=== PATIENT | female | born 1965 | race Caucasian/White ===

== ENCOUNTER → 2017-01-15 15:55 | Emergency (ER) | payer SELFPAY ==
--- NOTE | 2017-01-15 17:35 | RAD ---
HISTORY: Right knee injury with pain COMPARISONS: None VIEWS: 4, Frontal, lateral, axial, and oblique views of the right knee FINDINGS: BONE DENSITY: Normal. BONES: There is no displaced fracture. JOINTS: There is no arthropathy. There is no suprapatellar joint effusion or lipohemarthrosis. ALIGNMENT: There is no dislocation. SOFT TISSUES: Unremarkable. OTHER FINDINGS: None. IMPRESSION: NO ACUTE OSSEOUS INJURY. IF SYMPTOMS PERSIST, RECOMMEND REPEAT IMAGING.
[2017-01-15 18:29] VITALS: BP 118/80
--- NOTE | 2017-02-08 08:34 | ED ---
Lower Extremity - HPI Summary HPI Summary: Pt here w/ Rt knee pain. States she tripped at work carrying a box of frozen cookies and landed on her knees - now has pain in Rt knee. Back of Rt knee hurt after she sits for a period of time and then goes to stand. She is able to ambulate and bear weight however reports she gets a shooting pain in the lateral aspect of her Rt lower leg if she moves "just right". Has tried a few pain relievers of which she does not recall the name w/ some relief. Denies numbness, tingling, weakness. Denies head injury, LOC or neuro deficits during or after fall. No other injuries she cares to address from fall. Concerned and just wanted to get checked out here today. - History of Current Complaint Chief Complaint: EDExtremityLower Stated Complaint: FALL/RT KNEE INJURY Time Seen by Provider: 01/15/17 16:37 Hx Obtained From: Patient Pain Intensity: 3 - Allergies/Home Medications Allergies/Adverse Reactions: Allergies Allergy/AdvReac Type Severity Reaction Status Date / Time No Known Allergies Allergy Verified 03/16/15 17:47 PMH/Surg Hx/FS Hx/Imm Hx Previously Healthy: Yes Endocrine/Hematology History: Denies: Hx Anticoagulant Therapy, Hx Blood Disorders Infectious Disease History: No Infectious Disease History: Denies: Traveled Outside the [place] in Last 30 Days - Social History Occupation: Employed Full-time Alcohol Use: Rare Hx Substance Use: No Substance Use Type: Reports: None Hx Tobacco Use: Yes Smoking Status (MU): Heavy Every Day Tobacco Smoker Review of Systems Constitutional: Negative Positive: no symptoms reported Musculoskeletal: Other - see HPI Positive: Bruising - knees Neurological: Negative Psychological: Normal All Other Systems Reviewed And Are Negative: Yes Physical Exam Triage Information Reviewed: Yes Vital Signs On Initial Exam: Initial Vitals Temp Pulse Resp BP Pulse Ox 97.6 F 81 18 146/80 99 01/15/17 16:00 01/15/17 16:00 01/15/17 16:00 01/15/17 16:00 01/15/17 16:00 Vital Signs Reviewed: Yes Appearance: Positive: Well-Appearing, No Pain Distress, Well-Nourished Skin: Positive: Warm, Dry - ecchymosis over B/L knees - no ervin deformity Head/Face: Positive: Normal Head/Face Inspection Respiratory/Lung Sounds: Positive: Breath Sounds Present Cardiovascular: Positive: Normal, Pulses are Symmetrical in both Upper and Lower Extremities Musculoskeletal: Positive: Strength/ROM Intact, Other - no popliteal edema, neg jaya's, neg ant/post drawer tests, neg verus/valgus stress tests, neg Meri Neurological: Positive: Normal, Sensory/Motor Intact, Alert, Oriented to Person Place, Time Psychiatric: Positive: Normal Diagnostics - Vital Signs Vital Signs Temp Pulse Resp BP Pulse Ox 01/15/17 18:28 97.8 F 69 16 118/80 01/15/17 16:00 97.6 F 81 18 146/80 99 - Laboratory Lab Statement: Any lab studies that have been ordered have been reviewed, and results considered in the medical decision making process. Lower Extremity Course/Dx - Diagnoses Provider Diagnoses: Right knee sprain Discharge - Discharge Plan Condition: Stable Disposition: HOME Prescriptions: Cyclobenzaprine TAB* [Flexeril 10 MG TAB*] 10 mg PO BEDTIME PRN #5 tab PRN Reason: Pain Patient Education Materials: Knee Sprain (ED) Referrals: Zohaib Martin MD [Primary Care Provider] - Additional Instructions: Rest, ice, elevate You may wear an JAH wrap or OTC neoprene knee brace if this provides comfort and support. Continue alternating ibuprofen with acetaminophen as needed for pain You may take flexeril, a muscle relaxer, before to help you sleep. This may cause drowsiness - do not operate machinery while taking. Follow-up with PCP if pain continues after 1-2 weeks
== END | disposition home or self-care (01) ==
LOC: ED 15:55
DX: S83.91XA Sprain of unspecified site of right knee, initial encounter (principal); M25.561 Pain in right knee; W22.8XXA Striking against or struck by other objects, initial encounter; Y93.9 Activity, unspecified; Y92.9 Unspecified place or not applicable; Y99.9 Unspecified external cause status
CPT/HCPCS: 99282

== ENCOUNTER → 2018-03-17 13:10 | Emergency (ER) | payer BC ==
[~2018-03-17 13:10] MED LIST: Sucralfate TAB* 1 GM PO ONE
--- NOTE | 2018-03-17 15:42 | ED ---
Abdominal Pain/Female - HPI Summary HPI Summary: This is scribe Romaine Gibson documenting for attending Dr. Nolan Huerta MD. This patient is a 53 year old F presenting to [facility] with a chief complaint of intermittent sharp upper abd pain radiating to her chest, shoulders, and upper back since 3 days ago. This pain has been going on for 3 weeks but is at its worst these last 3 days. The patient rates the pain 5/10 in severity. Symptoms aggravated by going to work, which she thinks is stress related. Patient reports that her chest fills with gas during these episodes. PMHX GERD. SHX tobacco use. FHX Gall bladder problems, cardiac problems. RX Prilosec. I, Dr. Huerta, personally performed the services described in this documentation as scribed in my presence and it is both accurate and complete. - History of Current Complaint Chief Complaint: EDAbdPain Stated Complaint: ABD PAIN, VOMITING Time Seen by Provider: 03/17/18 15:30 Hx Obtained From: Patient Onset/Duration: Gradual Onset, Lasting Weeks - 3, Still Present Timing: Intermittent Episode Lasting - a few minutes to several hours Severity Initially: Moderate Severity Currently: Moderate Pain Intensity: 5 Pain Scale Used: 0-10 Numeric Location: Epigastric Radiates: Yes Radiates to: Back, Chest Character: Sharp Aggravating Factor(s): Other: - stress Associated Signs and Symptoms: Positive: Chest Pain, Back Pain Allergies/Adverse Reactions: Allergies Allergy/AdvReac Type Severity Reaction Status Date / Time Penicillins Allergy Hives Verified 03/17/18 14:53 rice Allergy Hives Verified 03/17/18 14:56 Home Medications: Home Medications Omeprazole 20 mg PO DAILY 03/17/18 [History Confirmed 03/17/18] PMH/Surg Hx/FS Hx/Imm Hx Endocrine/Hematology History: Denies: Hx Anticoagulant Therapy, Hx Blood Disorders GI History: Reports: Hx Gastroesophageal Reflux Disease Infectious Disease History: No Infectious Disease History: Denies: Traveled Outside the [place] in Last 30 Days - Family History Known Family History: Positive: Cardiac Disease, Other - Gall bladder problems - Social History Alcohol Use: Rare Hx Substance Use: No Substance Use Type: Reports: None Hx Tobacco Use: Yes Smoking Status (MU): Heavy Every Day Tobacco Smoker Type: Cigarettes Review of Systems Negative: Fever Positive: Chest Pain Positive: Abdominal Pain Positive: Other - back pain All Other Systems Reviewed And Are Negative: Yes Physical Exam - Summary Physical Exam Summary: Appearance: The patient is well-nourished in no acute distress and in no acute pain. Skin: The skin is warm and dry and skin color reflects adequate perfusion. HEENT: The head is normocephalic and atraumatic. The pupils are equal and reactive. The conjunctivae are clear and without drainage. Nares are patent and without drainage. Mouth reveals moist mucous membranes and the throat is without erythema and exudate. The external ears are intact. The ear canals are patent and without drainage. The tympanic membranes are intact. Neck: The neck is supple with full range of motion and non-tender. There are no carotid bruits. There is no neck vein distension. Respiratory: Chest is non-tender. Lungs are clear to auscultation and breath sounds are symmetrical and equal. Cardiovascular: Heart is regular rate and rhythm. There is no murmur or rub auscultated. There is no peripheral edema and pulses are symmetrical and equal. Abdomen: The abdomen is soft and non-tender. There are normal bowel sounds heard in all four quadrants and there is no organomegaly palpated. Musculoskeletal: There is no back tenderness noted. Extremities are non-tender with full range of motion. There is good capillary refill. There is no peripheral edema or calf tenderness elicited. Neurological: Patient is alert and oriented to person, place and time. The patient has symmetrical motor strength in all four extremities. Cranial nerves are grossly intact. Deep tendon reflexes are symmetrical and equal in all four extremities. Psychiatric: The patient has an appropriate affect and does not exhibit any anxiety or depression. Triage Information Reviewed: Yes Vital Signs On Initial Exam: Initial Vitals Temp Pulse Resp BP Pulse Ox 98.1 F 88 18 140/83 98 03/17/18 13:13 03/17/18 13:13 03/17/18 13:13 03/17/18 13:13 03/17/18 13:13 Vital Signs Reviewed: Yes Diagnostics - Vital Signs Vital Signs Temp Pulse Resp BP Pulse Ox 03/17/18 13:13 98.1 F 88 18 140/83 98 - Laboratory Result Diagrams: 03/17/18 15:59 03/17/18 15:59 Lab Statement: Any lab studies that have been ordered have been reviewed, and results considered in the medical decision making process. - Radiology CXR Radiology Interpretation Completed By: Radiologist - NO ACTIVE DISEASE. ED Physician has reviewed this report - EKG 13:24 Cardiac Rate: NL EKG Rhythm: Sinus Rhythm - [address] Segment: Normal Ectopy: None Abdominal Pain Fem Course/Dx - Course Course Of Treatment: Ms. Blackwood presented with a complaint of epigastric/chest pain waxing and waning for the last 3 days. She takes Prilosec routinely. Her exam was unremarkable as was her EKG and labs including a delayed troponin. She improved some with sucralfate. I recommended the addition of sucralfate for short time to her regimen and close follow-up. - Diagnoses Provider Diagnoses: Epigastric pain Discharge - Sign-Out/Discharge Documenting (check all that apply): Patient Departure - discharge - Discharge Plan Condition: Stable Disposition: HOME Prescriptions: Sucralfate SUSP 1 gm PO QID ACHS #200 ml Patient Education Materials: Epigastric Pain (ED) Referrals: Yair Morocho MD [Medical Doctor] - 3 Days Additional Instructions: Follow up with gastroenterology. Take Prilosec twice a day instead of once a day. - Billing Disposition and Condition Condition: STABLE Disposition: Home
--- NOTE | 2018-03-17 16:00 | RAD ---
INDICATION: Chest pain COMPARISON: March 16, 2015 TECHNIQUE: An AP portable view obtained at 1549 hours is submitted. FINDINGS: Bones/Soft Tissues: There are no acute bony findings. Cardiomediastinal: The cardiomediastinal silhouette is normal. Lungs: There are no infiltrates. Pleura: There are no pleural effusions. Other: None IMPRESSION: NO ACTIVE DISEASE.
[2018-03-17 16:05] LABS: ABS Basophils 0.1 10^3/ul (0-0.2); ABS Eosinophils 0.1 10^3/ul (0-0.6); ABS Lymphocytes 2.8 10^3/ul (1.0-4.8); ABS Monocytes 0.7 10^3/ul (0-0.8); ABS Neutrophils 7.9 10^3/ul (1.5-7.7); ABS Nucleated RBC 0 10^3/ul; Eosinophil % 0.8 % (0-6); Hematocrit 44 % (35-47); Lymphocyte % 24.4 % (25-47); Mean Corpuscular HGB Conc 34 g/dl (31-36); Mean Corpuscular Hemoglobin 32 pg (27-31); Mean Corpuscular Volume 93 fL (80-97); Mean Platelet Volume 9.3 um3 (7.4-10.4); Nucleated Red Blood Cells % 0.1; Platelet Count 252 10^3/ul (150-450); Red Cell Distribution Width 13 % (10.5-15); White Blood Count 11.7 10^3/ul (3.5-10.8)
[2018-03-17 16:31] LABS: EGFR Non-African American 81.1 (>60)
[2018-03-17 17:30] VITALS: BP 121/84
== END | disposition home or self-care (01) ==
LOC: EDUNIT# → ED 13:10
DX: R10.13 Epigastric pain (principal); R07.9 Chest pain, unspecified; F17.210 Nicotine dependence, cigarettes, uncomplicated; Z88.0 Allergy status to penicillin
CPT/HCPCS: 36415; 71045; 80053; 83605; 84484; 85025; 85379; 99283; A9270-GY

== ENCOUNTER → 2018-07-07 14:40 | Emergency (ER) | payer BC ==
[~2018-07-07 14:40] MED LIST changes: +Iohexol 350* (CONTRAST) 500 ML MDV IV ONE; +NS 0.9% 1000 ML* 1,000 ML IV ONE; -Sucralfate TAB* 1 GM PO ONE
[2018-07-07 19:56] LABS: Hematocrit 45 % (35-47); Hemoglobin 15.5 g/dl (12.0-16.0); Mean Corpuscular HGB Conc 35 g/dl (31-36); Mean Corpuscular Hemoglobin 32 pg (27-31); Mean Corpuscular Volume 93 fL (80-97); Mean Platelet Volume 9.6 fL (7.4-10.4); Platelet Count 311 10^3/ul (150-450); Red Blood Count 4.84 10^6/ul (4.00-5.40); Red Cell Distribution Width 13 % (10.5-15); White Blood Count 8.6 10^3/ul (3.5-10.8)
[2018-07-07 19:58] LABS: ABS Basophils 0.1 10^3/ul (0-0.2); ABS Eosinophils 0.2 10^3/ul (0-0.6); ABS Lymphocytes 3.1 10^3/ul (1.0-4.8); ABS Monocytes 0.6 10^3/ul (0-0.8); ABS Neutrophils 4.6 10^3/ul (1.5-7.7); ABS Nucleated RBC 0 10^3/ul; Eosinophil % 2.3 %; Lymphocyte % 35.8 %; Nucleated Red Blood Cells % 0.1
--- NOTE | 2018-07-07 20:17 | ED ---
HPI Chest Pain - HPI Summary HPI Summary: The patient is a 53 y/o F presenting to [facility] with a chief complaint of constant diffuse heaviness and pressure acorss anterior chest starting yesterday. Two days ago, the patient had a laparscopic cholecystectomy at [facility] by Dr. See without any complications, but she may have had an anesthetic reaction yesterday that resulted in vomiting. She additionally c/o productive cough, pain between her shoulders, but she denies SOB and lower extremity pain. The pain, which is currently rated 2/10 in severity, is aggravated by deep breathing. She assumed that the pain was from flatulence, but she was instructed to come to the ED by her surgeon and PCP. She has hx of GERD, which she takes medication for. She denies HTN, diabetes, and cardiac issues. - History of Current Complaint Chief Complaint: EDChestPainROMI Time Seen by Provider: 07/07/18 20:04 Hx Obtained From: Patient Onset/Duration: Started Hours Ago - yesterday, Still Present Timing: Constant, Lasting Hours - since yesterday Initial Severity: Moderate Current Severity: Mild Pain Intensity: 2 Pain Scale Used: 0-10 Numeric Chest Pain Location: Diffuse - anterior Chest Pain Radiates: No Character: Cough, Productive, Heaviness, Pressure/Squeezing Aggravating Factor(s): Deep Breaths Alleviating Factor(s): Nothing Associated Signs and Symptoms: Positive: Productive Cough, Vomiting - possible anesthesia rxn, Other: - POSITIVE: pain between shoulders; NEGATIVE: lower extremity pain. Negative: Shortness of Breath - Allergy/Home Medications Allergies/Adverse Reactions: Allergies Allergy/AdvReac Type Severity Reaction Status Date / Time Penicillins Allergy Hives Verified 07/07/18 15:03 rice Allergy Hives Verified 07/07/18 15:03 Home Medications: Home Medications Pantoprazole TAB (NF) [Protonix TAB (NF)] 40 mg PO DAILY 07/07/18 [History Confirmed 07/07/18] PMH/Surg Hx/FS Hx/Imm Hx Endocrine/Hematology History: Denies: Hx Anticoagulant Therapy, Hx Blood Disorders, Hx Diabetes Cardiovascular History: Denies: Hx Hypertension GI History: Reports: Hx Gastroesophageal Reflux Disease - Surgical History Surgery Procedure, Year, and Place: cholecystectomy, 06/25/18, [facility] Infectious Disease History: No Infectious Disease History: Denies: Traveled Outside the [place] in Last 30 Days - Family History Known Family History: Positive: Cardiac Disease, Other - Gall bladder problems Negative: Hypertension, Diabetes - Social History Alcohol Use: Rare Hx Substance Use: No Substance Use Type: Reports: None Hx Tobacco Use: Yes Smoking Status (MU): Heavy Every Day Tobacco Smoker Type: Cigarettes Review of Systems Positive: Chest Pain - pressure/heaviness diffuse anterior chest Positive: Cough - productive. Negative: Shortness Of Breath Positive: Vomiting - possible anesthesia rxn Positive: Other - POSITIVE: pain between shoulders; NEGATIVE: pain in legs All Other Systems Reviewed And Are Negative: Yes Physical Exam - Summary Physical Exam Summary: Appearance: Well appearing, no pain distress Skin: warm, dry, reflects adequate perfusion Head/face: normal Eyes: EOMI, MARGOT ENT: normal Neck: supple, non-tender Respiratory: CTA, breath sounds present Cardiovascular: RRR, pulses symmetrical Abdomen: soft, mild diffuse tenderness across abdomen, laparoscopic scars Musculoskeletal: normal, strength/ROM intact Neuro: normal, sensory motor intact, A&Ox3 Triage Information Reviewed: Yes Vital Signs On Initial Exam: Initial Vitals Temp Pulse Resp BP Pulse Ox 98.2 F 81 18 135/81 97 07/07/18 14:59 07/07/18 14:59 07/07/18 14:59 07/07/18 14:59 07/07/18 14:59 Vital Signs Reviewed: Yes Diagnostics - Vital Signs Vital Signs Temp Pulse Resp BP Pulse Ox 07/07/18 19:45 75 14 156/107 100 07/07/18 19:00 98.3 F 73 18 141/79 98 07/07/18 16:54 98.3 F 81 16 122/66 99 07/07/18 14:59 98.2 F 81 18 135/81 97 - Laboratory Lab Results: Lab Results 07/07/18 Range/Units 19:45 WBC 8.6 (3.5-10.8) 10^3/ul RBC 4.84 (4.00-5.40) 10^6/ul Hgb 15.5 (12.0-16.0) g/dl Hct 45 (35-47) % MCV 93 (80-97) fL MCH 32 H (27-31) pg MCHC 35 (31-36) g/dl RDW 13 (10.5-15) % Plt Count 311 (150-450) 10^3/ul MPV 9.6 (7.4-10.4) fL Neut % (Auto) 54.0 % Lymph % (Auto) 35.8 % Hartley % (Auto) 6.7 % Eos % (Auto) 2.3 % Baso % (Auto) 1.2 % Absolute Neuts (auto) 4.6 (1.5-7.7) 10^3/ul Absolute Lymphs (auto) 3.1 (1.0-4.8) 10^3/ul Absolute Monos (auto) 0.6 (0-0.8) 10^3/ul Absolute Eos (auto) 0.2 (0-0.6) 10^3/ul Absolute Basos (auto) 0.1 (0-0.2) 10^3/ul Absolute Nucleated RBC 0 10^3/ul Nucleated RBC % 0.1 Result Diagrams: 07/07/18 19:45 07/07/18 19:45 Lab Statement: Any lab studies that have been ordered have been reviewed, and results considered in the medical decision making process. - Radiology CXR Radiology Interpretation Completed By: Radiologist Summary of Radiographic Findings: No acute pathology. ED physician has reviewed this report. - CT Chest/Abdomen/Pelvis CTA CT Interpretation Completed By: Radiologist Summary of CT Findings: FINDINGS: Pulmonary arteries: Normal. No pulmonary emboli. Aorta: Normal. No aortic aneurysm. No aortic dissection. Lungs: Minimal atelectasis at bilateral lung bases. Pleural space: Normal. No pneumothorax. No pleural effusion. Heart: Normal. No cardiomegaly. No pericardial effusion. Lymph nodes: Unremarkable. No enlarged lymph nodes. Bones/joints: Unremarkable. No acute fracture. Soft tissues: Unremarkable. IMPRESSION: No acute abnormality. ED physician has reviewed this report. - EKG 15:07 Cardiac Rate: NL EKG Rhythm: Sinus Rhythm - 70 BPM Summary of EKG Findings: No STEMI. Chest Pain Course/Dx - Course Course Of Treatment: The patient is a 53 y/o F presenting to [facility] with a chief complaint of constant pressure and heaviness in her anterior chest starting yesterday following a laparoscopic cholecystectomy performed two days ago at [facility] by Dr. See. She additionally c/o pain between her shoulders, but she denies leg pain and SOB, although deep breaths worsens the CP. Upon exam, there is mild diffuse tenderness of the abn, and laparoscopic scarring is visible on the abd. In the ED course, the patient was given Ns, Iohexol. Bloodwork obtained. EKG shows NSR. CXR shows no acute pathology. Chest/Thorax/Pelvis CTA is negative. Patient is diagnosed with atypical chest pain and status post cholecystectomy. She will follow up with her PCP and surgeon in 3 days. She agrees with this plan and understands the need for return if symptoms worsen. - Chest Pain Differential Diagnosis/HQI/PQRI: Aortic Aneurysm, Chest Wall, Lower Respiratory Infection, Pulmonary Embolism - Diagnoses Provider Diagnoses: Atypical chest pain, Status post cholecystectomy Discharge - Sign-Out/Discharge Documenting (check all that apply): Patient Departure - Patient will be discharged home. - Discharge Plan Condition: Stable Disposition: HOME Patient Education Materials: Chest Pain (ED), Laparoscopic Cholecystectomy (DC) Referrals: [facility] [place] PH[facility]ICIAN REFERRAL [Outside] - 3 Days Additional Instructions: Follow up with your primary care physician in 2-3 days. Follow up with your surgeon in 2-3 days. Return to the emergency department if any new or worsening symptoms occur. - Billing Disposition and Condition Condition: STABLE Disposition: Home - Attestation Statements Document Initiated by Luis: Yes Documenting Scribe: Lucille Boateng Provider For Whom uLis is Documenting (Include Credential): Dr. Tay Mejia MD Scribe Attestation: Lucille Cornelius scribed for Dr. Tay Mejia MD on 07/07/18 at 2343. Scribe Documentation Reviewed: Yes Provider Attestation: The documentation as recorded by the Lucille watkins accurately reflects the service I personally performed and the decisions made by me, Dr. Tay Mejia MD Status of Scribe Document: Viewed
[2018-07-07 20:18] LABS: EGFR Non-African American 69.3 (>60)
[2018-07-07 23:28] VITALS: BP 125/61
== END | disposition home or self-care (01) ==
LOC: ED 14:40
DX: R07.89 Other chest pain (principal); Z88.0 Allergy status to penicillin
CPT/HCPCS: 36415; 71046; 71275; 74174; 80053; 83605; 83690; 83880; 84484; 85025; 93005; 96361; 96374; 99282; Q9967